=== PATIENT | male | born 1990 | race Caucasian/White ===

== ENCOUNTER 2020-03-31 08:50 | Emergency (ER) | payer BC, SELFPAY ==
[2020-03-31 08:58] VITALS: BP 141/89; PULSE 76; RESP 18; TEMP 36.7; O2SAT 100
--- NOTE | 2020-03-31 09:06 | ED.SKABFB ---
HPI - Skin/Abscess/Foreign Bdy General Chief complaint: Skin/Abscess/Foreign Body Stated complaint: left leg back bite Time Seen by Provider: 03/31/20 09:07 Source: patient and RN notes reviewed History of Present Illness HPI narrative: Patient is a 29-year-old male who presents the urgent care with complaints of an abscess to the left upper inner thigh. Patient states he noticed it approximately 1 week ago and is became more red, tender, and painful. Patient states that it rubs in the area while he is at work and seems to have worsened. States that he believes it may have been a bug bite initially or an infected hair. Denies of any fever, chills, nausea, vomiting. No other acute complaints. No acute distress noted. Patient read the plan of care. Related Data Home Medications Medication Instructions Recorded Confirmed omeprazole 20 mg PO DAILY 03/31/20 03/31/20 zolpidem 10 mg PO DIRECTED 03/31/20 03/31/20 Allergies Allergy/AdvReac Type Severity Reaction Status Date / Time No Known Allergies Allergy Verified 03/31/20 08:57 Review of Systems Review of Systems: Narrative: CONSTITUTIONAL: Denies fever, chills, or sweats. EYES: Denies visual changes, redness, or discharge. ENT: Denies rhinorrhea, congestion, sore throat, or otalgia. CARDIOVASCULAR: Denies chest pain, palpitations, or edema. RESPIRATORY: Denies cough or dyspnea. GASTROINTESTINAL: Denies abdominal pain, nausea, vomiting, or diarrhea. GENITOURINARY: Denies dysuria or hematuria. SKIN: Reports of an infected bug bite to the left upper inner thigh MUSCULOSKELETAL: Denies back pain, joint pain, or myalgia. NEUROLOGIC: Denies headache, numbness, or weakness. All other systems reviewed are negative, except as documented in HPI. PMFSH Comments At the time of my signature, I reviewed and agree with the nursing past medical, surgical, social, and family history. There is no relevant family history pertinent to the patient complaint. Exam Narrative: Exam Narrative: GENERAL: This is a well-nourished, well-developed patient, in no apparent distress. HEAD: normocephalic, atraumatic. EYES: PERRL. Sclera clear/white. Vision is grossly intact. EARS: External ears normal NOSE: External nose normal with no obvious nasal discharge, nares without redness, no rhinorrhea. THROAT: Mucous membranes moist NECK: Neck supple SKIN: 9 cm area of erythema to the left medial upper thigh with a 4 cm nonfluctuant center and pinpoint scab without drainage NEURO: awake, alert, and oriented to person, place and time. There were no obvious focal neurologic abnormalities. EXTREMITIES: No clubbing, cyanosis, or edema. Course Vital Signs Vital signs: Vital Signs Temperature 98.0 F 03/31/20 08:58 Pulse Rate 76 03/31/20 08:58 Respiratory Rate 18 03/31/20 08:58 Blood Pressure 141/89 H 03/31/20 08:58 Pulse Oximetry 100 03/31/20 08:58 Temperature 98.0 F 03/31/20 08:58 Pulse Rate 76 03/31/20 08:58 Respiratory Rate 18 03/31/20 08:58 Blood Pressure 141/89 H 03/31/20 08:58 Pulse Oximetry 100 03/31/20 08:58 Reviewed?patient is informed that they may have pre-hypertension or hypertension based on a blood pressure reading in the department. I recommend the patient call the primary care provider listed on their discharge instructions or a physician of their choice this week to arrange follow-up for further evaluation of possible pre-hypertension or hypertension. MDM - Skin/Abscess/Foreign Bdy MDM Narrative Medical decision making narrative: Advised the patient to complete oral antibiotic regimen as prescribed. Make sure to eat and drink with the medication. Clean the area with plain Dial soap and water. Do not pick or try to pop the area. If it drains on its own, use Neosporin and a bandage as needed. If you develop any increase in redness, swelling, pain associated with fever nausea?go to the emergency room. Follow-up with your PCP within 2 to 5 days or for wor
== END 2020-03-31 09:14 | disposition home or self-care (01) ==
PROVIDERS: Emergency Provider Nurse Practitioner Family
DX: L02.416 Cutaneous abscess of left lower limb (principal)
CPT/HCPCS: 99213; G0463